=== PATIENT | male | born 1990 | race Caucasian/White ===

== ENCOUNTER 2017-02-18 19:06 | Emergency (ER) | payer OTHER ==
[2017-02-18] MEDS ORDERED: Ondansetron 4 MG/2 ML SDV IV ONE (19:14)
[2017-02-18] MEDS ORDERED: Sodium Chloride 0.9% 1,000 ML IV ONE ×2 (19:14→20:23)
[2017-02-18] MEDS ORDERED: Ketorolac 30 MG/ML SDV IVPUSH ONE (19:14)
--- NOTE | 2017-02-18 19:18 | EDM.PDOC ---
ED HPI GENERAL MEDICAL PROBLEM - General Chief Complaint: Gastrointestinal Problem Stated Complaint: [id number] FLU Time Seen by Provider: 02/18/17 19:16 Source of Information: Reports: Patient History Limitations: Reports: No Limitations - History of Present Illness INITIAL COMMENTS - FREE TEXT/NARRATIVE: 4 days h/o V/D cramps, unable hold down anything not even water. Back Pain Score (Numeric/FACES): 4 - Related Data Allergies Allergy/AdvReac Type Severity Reaction Status Date / Time No Known Allergies Allergy Verified 02/18/17 19:14 Home Meds: Home Meds . [No Known Home Meds] 08/20/15 [History] Past Medical History - Past Health History Medical/Surgical History: Denies Medical/Surgical History - Past Surgical History HEENT Surgical History: Reports: Other (See Below) Social & Family History - Tobacco Use Smoking Status *Q: Never Smoker Second Hand Smoke Exposure: No - Caffeine Use Caffeine Use: Reports: Soda - Alcohol Use Days Per Week of Alcohol Use: 1 Number of Drinks Per Day: 1 Total Drinks Per Week: 1 - Recreational Drug Use Recreational Drug Use: No ED ROS GENERAL - Review of Systems Review Of Systems: ROS reveals no pertinent complaints other than HPI. ED EXAM, GI/ABD - Physical Exam Exam: See Below Exam Limited By: No Limitations General Appearance: Alert, WD/WN, Mild Distress, Other (upset) Ears: Hearing Grossly Normal Throat/Mouth: Normal Voice, No Airway Compromise Head: Atraumatic Neck: Non-Tender, Full Range of Motion Respiratory/Chest: No Respiratory Distress Cardiovascular: Regular Rate, Rhythm GI/Abdominal Exam: Soft, Tender, Abnormal Bowel Sounds, Other (generalized discomfort, BS hyper). No: Distended, Guarding, Rigid, Rebound Neurological: Alert, Oriented, Normal Cognition, Normal Gait, No Motor/Sensory Deficits Psychiatric: Flat Affect Skin Exam: Warm, Dry, Normal Color Lymphatic: No Adenopathy Course - Vital Signs Last Recorded V/S: Last Vital Signs Temp 37.3 C 02/18/17 20:36 Pulse 76 02/18/17 20:36 Resp 14 02/18/17 20:36 BP 106/56 L 02/18/17 20:36 Pulse Ox 98 02/18/17 20:36 - Orders/Labs/Meds Orders: Active Orders 24 hr Category Date Time Status Sodium Chloride 0.9% [Normal Saline] 1,000 ml Med 02/18/17 20:23 Active IV .BOLUS Medication Orders Sodium Chloride (Normal Saline) 1,000 mls @ 999 mls/hr IV .BOLUS ONE Stop: 02/18/17 21:23 Last Admin: 02/18/17 20:24 Dose: 999 mls/hr Labs: Laboratory Tests 02/18/17 02/18/17 Range/Units 19:18 19:18 WBC 8.8 (5.0-10.0) 10^3/uL RBC 5.45 (4.6-6.2) 10^6/uL Hgb 15.9 (14.0-18.0) g/dL Hct 46.2 (40.0-54.0) % MCV 84.8 (80-100) fL MCH 29.2 (27.0-34.0) pg MCHC 34.4 (33.0-35.0) g/dL Plt Count 234 (150-450) 10^3/uL Neut % (Auto) 74.7 (42.2-75.2) % Lymph % (Auto) 14.3 L (20.5-50.1) % Burt % (Auto) 10.4 H (2-8) % Eos % (Auto) 0.5 L (1.0-3.0) % Baso % (Auto) 0.1 (0.0-1.0) % Add Manual Diff Yes Neutrophils % (Manual) 77 H (42-75) % Lymphocytes % (Manual) 15 L (20-50) % Monocytes % (Manual) 8 (2-8) % Sodium 134 L (135-145) mmol/L Potassium 3.7 (3.6-5.0) mmol/L Chloride 97 L (101-111) mmol/L Carbon Dioxide 26.0 (21.0-31.0) mmol/L Anion Gap 14.7 BUN 16 (7-18) mg/dL Creatinine 1.3 (0.6-1.3) mg/dL Est Cr Clr Drug Dosing 96.17 mL/min Estimated GFR (MDRD) > 60 BUN/Creatinine Ratio 12.30 Glucose 107 H (74-105) mg/dL Calcium 8.4 (8.4-10.2) mg/dl Total Bilirubin 0.6 (0.2-1.0) mg/dL AST 24 (10-42) IU/L ALT 24 (10-60) IU/L Alkaline Phosphatase 65 (42-121) IU/L Total Protein 6.4 L (6.7-8.2) g/dl Albumin 3.5 (3.2-5.5) g/dl Globulin 2.9 Albumin/Globulin Ratio 1.21 Amylase 37 (28-100) U/L Lipase 22 (22-51) U/L Meds: Medications Generic Name Dose Route Start Last Admin Trade Name Freq PRN Reason Stop Dose Admin Sodium Chloride 1,000 mls @ 999 mls/hr 02/18/17 20:23 02/18/17 20:24 Normal Saline IV 02/18/17 21:23 999 mls/hr .BOLUS ONE Administration Discontinued Medications Generic Name Dose Route Start Last Admin Trade Name Freq PRN Reason Stop Dose Admin Sodium Chloride 1,000 mls @ 999 mls/hr 02/18/17 19:14 02/18/17 19:24 Normal Saline IV 02/18/17 20:14 999 mls/hr .BOLUS ONE Administration Ketorolac Tromethamine 15 mg 02/18/17 19:14 02/18/17 19:27 Toradol IVPUSH 02/18/17 19:15 15 mg ONETIME ONE Administration Ondansetron HCl 4 mg 02/18/17 19:14 02/18/17 19:26 Zofran IV 02/18/17 19:15 4 mg ONETIME ONE Administration - Re-Assessments/Exams Free Text/Narrative Re-Assessment/Exam: 02/18/17 20:41 re-exam; feels good s/p IV + Rx Departure - Departure Time of Disposition: 20:42 Disposition: Home, Self-Care 01 Condition: Good Clinical Impression: Gastroenteritis, Vomiting, Diarrhea - Discharge Information Instructions: Dehydration, Adult, [id number] Forms: ED Department Discharge Additional Instructions: 1) avoid solid foods next 48 hours 2) recheck as needed rx given; bentyl 10mg bid prn cramps x 12 zofran ODT 4mg bid prn vomiting x 6 imodium qid prn diarrhoea x 1 box - My Orders Last 24 Hours: My Active Orders 02/18/17 20:23 Sodium Chloride 0.9% [Normal Saline] 1,000 ml IV .BOLUS - Assessment/Plan Last 24 Hours: My Active Orders 02/18/17 20:23 Sodium Chloride 0.9% [Normal Saline] 1,000 ml IV .BOLUS
[2017-02-18 19:51] LABS: CHLORIDE,CL 97 mmol/L (101-111); SODIUM,NA 134 mmol/L (135-145)
[2017-02-18 20:37] VITALS: BP 106/56
== END 2017-02-18 20:45 | disposition home or self-care (01) ==
LOC: DL.ED 19:06
DX: K52.9 Noninfective gastroenteritis and colitis, unspecified (principal)
CPT/HCPCS: 36415; 80053; 82150; 83690; 85025; 96361; 96374; 96375; 99284; J1885; J2405; J7030